=== PATIENT | male | born 1965 | race American Indian/Alaskan Native ===

== ENCOUNTER 2018-05-10 13:35 | Emergency (ER) | payer OTHER ==
[2018-05-10 13:51] VITALS: O2SAT 98
--- NOTE | 2018-05-10 14:04 | C.PDOC ---
History Of Present Illness 52 y/o male with a PMHx of hypertension presents to the ED complaining of occasional left chest pain for 1 week, which radiates to his back. Pain is rated a 4 out of 10 and described as "muscle stiffness" of the chest wall. Patient r eports history of endocarditis in 2015 and is s/p valve replacement surgery. He saw his PMD on 05/06, who referred patient to cardiology. His last stress test and echo were in 2017. Patient admits he forgot to take his daily dose of metropolol (50 mg) last night. Otherwise he denies any SOB, GILMORE, cough, fevers, chills, night sweats, nausea, vomiting, abdominal pain, or recent alcohol/drug use. No recent antibiotic use. No recent dental work. PMD- Dr. Emil oRdgers Time Seen by Provider: 05/10/18 14:03 Chief Complaint (Nursing): Chest Pain History Per: Patient History/Exam Limitations: no limitations Onset/Duration Of Symptoms: Intermittent Episodes Current Symptoms Are (Timing): Still Present Past Medical History Reviewed: Historical Data, Nursing Documentation, Vital Signs Vital Signs: Last Vital Signs Temp 98.1 F 05/10/18 13:47 Pulse 95 H 05/10/18 13:47 Resp 20 05/10/18 13:47 BP 143/104 H 05/10/18 13:47 Pulse Ox 98 05/10/18 13:47 - Medical History PMH: HTN Family History: States: No Known Family Hx - Social History Hx Alcohol Use: Yes Hx Substance Use: No - Immunization History Hx Tetanus Toxoid Vaccination: No Hx Influenza Vaccination: No Hx Pneumococcal Vaccination: No Review Of Systems Constitutional: Negative for: Fever, Chills, Sweats Eyes: Negative for: Vision Change Cardiovascular: Positive for: Chest Pain. Negative for: Palpitations Respiratory: Negative for: Cough, Shortness of Breath, SOB with Excertion Gastrointestinal: Negative for: Nausea, Vomiting, Abdominal Pain Musculoskeletal: Positive for: Back Pain Skin: Negative for: Rash Neurological: Negative for: Weakness, Numbness, Headache, Dizziness Physical Exam - Physical Exam Appears: Non-toxic, No Acute Distress Skin: Warm, Dry, No Diaphoretic Head: Normacephalic Eye(s): bilateral: Normal Inspection, PERRL, EOMI Oral Mucosa: Moist Neck: Trachea Midline, Supple, Other (No meningeal signs- negative kernig's and brudzinskis) Chest: Tenderness (reproducible pain to left chest wall) Cardiovascular: Rhythm Regular, No Friction Rub, No Murmur Respiratory: No Accessory Muscle Use, No Rales, No Rhonchi, No Wheezing Gastrointestinal/Abdominal: Soft, No Tenderness, No Distention Back: No CVA Tenderness, No Vertebral Tenderness Extremity: Bilateral: Atraumatic, Normal Color And Temperature Pulses: Left Dorsalis Pedis: Normal, Right Dorsalis Pedis: Normal Neurological/Psych: Oriented x3 ED Course And Treatment - Laboratory Results Result Diagrams: 05/10/18 14:34 05/10/18 14:34 O2 Sat by Pulse Oximetry: 98 (RA) Pulse Ox Interpretation: Normal Medical Decision Making Medical Decision Makin52 y/o M with a PMHx of HTN, endocarditis, s/p valve abx seed, p/w left-sided chest pain and back pain. Plan is to r/o dissection, r/o ACS. CP within 2d- and reproducible to palpation. Likely low heart score Heart score Story: 0 EK Age: 1 RF: 1 trop: pending Plan: --EKG --CT dissection study --Blood work --Blood cultures Chest CT: Name: SHIREEN JORGE Exam Date: May 10, 2018 3:54:22 PM EST Modality Type: CT\\ Description: CT - ABDOMEN AND CHEST Gender: M Laterality: Not applicable : 63 Referring Physician: PRIYANK LAMBERT EXAM: CT Chest with Intravenous Contrast. CT Abdomen and Pelvis with Intravenous Contrast CLINICAL HISTORY: Left side chest pain, r/o disection TECHNIQUE: Axial computed tomography images of the chest, abdomen and pelvis with intravenous contrast. CONTRAST: With; 100MLS VISI 320 COMPARISON: None provided. FINDINGS: CHEST: LUNGS: There is mild scarring of the lung bases as well as minimal pleural-parenchymal density at the right lower lung. PLEURAL SPACES: Mild pleural thickening at the right lung base. HEART: Heart within normal limits in size with cardiac valve replacement noted. LYMPH NODES: No lymphadenopathy is evident. ABDOMEN AND PELVIS: LIVER: There is an approximate 2.6 cm cyst within the superior aspect of the right lobe of the liver with smaller cyst present inferiorly. GALLBLADDER AND BILE DUCTS: The gallbladder appears within normal limits. No radioopaque gallstones are seen. No biliary ductal dilatation is evident. PANCREAS: Unremarkable. SPLEEN: Unremarkable. ADRENAL GLANDS: Unremarkable. KIDNEYS, URETERS, AND BLADDER: Unremarkable. No hydronephrosis or nephrolithiasis. No uterteral or bladder calculi. Prostate gland is markedly enlarged and lobulated in contour and density base of the bladder. STOMACH AND BOWEL: Unremarkable appearance of the stomach and bowel. No evidence of bowel obstruction. No evidence suggesting enteritis or colitis. Mild diverticular changes present sigmoid and descending colon. APPENDIX: No evidence of acute appendicitis on CT examination. PERITONEUM: No free fluid. No free air. LYMPH NODES: No lymphadenopathy is evident. VASCULATURE: The thoracic and abdominal aorta appear normal in course and caliber without evidence of an aneurysm or dissection. BONES: No acute osseous abnormality. IMPRESSION: Mild scarring at the lung bases with minimal pleural-parenchymal density at the right lower lung. The thoracic and abdominal aorta appears normal in course and caliber. There is no aneurysm or dissection. Cardiac valve replacement. Small cysts within the liver. Markedly enlarged prostate gland indenting the base of the bladder. Clinical correlation advised. Electronically signed on May 10, 2018 6:21:58 PM EST by: Keshawn Ramirez M.D., Certified by [employer], Diagnostic Radiology Labs reviewed, trop negative. Heart Score 3 Findings discussed w/ patient. Patient remains afebrile, AAOx3, resting comfortably, in no acute distress. Plan is to discharge patient home. Advised to follow up with cardiology and his PMD. He is agreeable to plan. Disposition Counseled Patient/Family Regarding: Studies Performed, Diagnosis, Need For Followup - Disposition Referrals: [facility] [Outside] [facility] [Outside] [facility] [Outside] Corwin Syed MD [Staff Provider] - Disposition: HOME/ ROUTINE Disposition Time: 18:40 Condition: GOOD Additional Instructions: Follow up with your primary care doctor or one we have provided as well as a revenue manager. If you continue to feel pain and dont feel better return to the ED anytime. SHIREEN JORGE, thank you for letting us take care of you today. Your provider was Joe Kumar and you were treated for LT SIDE CHEST PAIN. The emergency medical care you received today was directed at your acute symptoms. If you were p rescribed any medication, please fill it and take as directed. It may take several days for your symptoms to resolve. Return to the Emergency Department if your symptoms worsen, do not improve, or if you have any other problems. Please contact your doctor or call one of the physicians/clinics you have been referred to that are listed on the Patient Visit Information form that is included in your discharge packet. Bring any paperwork you were given at discharge with you along with any medications you are taking to your follow up visit. Our treatment cannot replace ongoing medical care by a primary care provider outside of the emergency department. Thank you for allowing the [facility] team to be part of your care today. If you had an X-Ray or CT scan: A Radiologist will review the ED reading if any change in treatment is needed we will contact you. If you had a blood, urine, or wound culture: It will take several days for the results, if any change in treatment is needed we will contact you. If you had an STI test: It will take 48 hours for the results. Please call after 1 week if you have not heard back. Prescriptions: Moxifloxacin [Avelox] 400 mg PO DAILY 10 Days #10 tab Instructions: Community-Acquired Pneumonia in Adults Forms: [facility] (Chinese) - Clinical Impression Clinical Impression: CAP (community acquired pneumonia) - Scribe Statement The provider has reviewed the documentation as recorded by the Jose De Jesus Marcos Provider Attestation: All medical record entries made by the Zacharyiblondon were at my direction and personally dictated by me. I have reviewed the chart and agree that the record accurately reflects my personal performance of the history, physical exam, medical decision making, and the department course for this patient. I have also personally directed, reviewed, and agree with the discharge instructions and disposition.
[2018-05-10 14:37] LABS: BASO % 0.4 % (0.0-2.0); EOS # 0.1 K/uL (0.0-0.7); EOS % 2.4 % (0.0-4.0); LYMPH # 1.6 K/uL (1.0-4.3); LYMPH % 26.9 % (20.0-40.0); MEAN CELL VOLUME 84.2 fL (80.0-94.0); MEAN CORPUSCULAR HEMOGLOBIN 28.8 pg (27.0-31.0); MEAN CORPUSCULAR HGB CONC 34.2 g/dL (33.0-37.0); MEAN PLATELET VOLUME 8.4 fL (7.2-11.7); MONO # 0.4 K/uL (0.0-0.8); MONO % 6.7 % (0.0-10.0); NEUT # 3.9 K/uL (1.8-7.0); NEUT % 63.6 % (50.0-75.0); NRBC % 0.1 % (0.0-2.0); RBC 5.56 Mil/uL (4.40-5.90); RED CELL DISTRIBUTION WIDTH 13.7 % (11.5-14.5); WHITE BLOOD COUNT 6.1 K/uL (4.8-10.8)
[2018-05-10 14:50] LABS: ALB/GLOB RATIO 1.4 (1.0-2.1); ALBUMIN 4.8 g/dL (3.5-5.0); ALT/SGPT 20 U/L (21-72); AST/SGOT 24 U/L (17-59); BLOOD UREA NITROGEN 17 mg/dL (9-20); CALCIUM 9.3 mg/dl (8.6-10.4); GFR NON-AFRICAN AMERICAN > 60
[2018-05-10] MEDS ORDERED: Iodixanol 320 MG/ML 100 ML BOTTLE IV ONE (15:20)
[2018-05-10 17:54] VITALS: BP 138/100; PULSE 84
[2018-05-10 19:46] VITALS: RESP 16; TEMP 99.2
--- NOTE | 2018-05-11 12:23 | CT ---
Date of service: 05/10/2018 CT Dissection protocol Indication: r/ out dissection Technique: Contiguous axial images were obtained through the chest/abdomen/pelvis without and with intravenous contrast enhancement utilizing dissection protocol technique. Sagittal and coronal reconstructions were generated and reviewed. This CT exam was performed using 1 or more of the following dose reduction techniques: Automated exposure control, adjustment of the MAA and/or kV according to patient size, and/or use of iterative reconstruction technique. Radiation dose (DLP): 2577.51 MGy-cm. Contrast: 100 mL Visipaque 320 IV Findings: Visualized portions of the inferior thyroid gland appear unremarkable. The mediastinal and hilar vascular structures appear within normal limits. The heart appears within normal limits of size. Cardiac valve prosthesis. No evidence of thoracic aorta dissection or aneurysmal dilatation. Mild right basilar atelectasis/infiltrate. Mild pleural thickening at the right lung base. No pleural effusion. No pneumothorax. There is normal course and contour of the abdominal aorta and common iliac arteries. The celiac artery, superior mesenteric artery and inferior mesenteric artery origins appear patent. Bilateral renal arteries appear patent. At least 3 probable hepatic cysts. The pancreas, spleen, adrenal glands, and gallbladder appear unremarkable. Lobulated renal contours. Question presence of focal renal scarring versus 8 mm exophytic left angiomyolipoma (series 6, image 124). The kidneys enhance symmetrically without evidence of hydronephrosis or obstructing renal calculi. No enlarged abdominal lymphadenopathy is identified. The stomach is nondistended. Diverticulosis without CT evidence of acute diverticulitis. Visualized bowel loops appear within normal limits of caliber without evidence of obstruction. The appendix appears normal. No inflammatory changes are seen in the right lower quadrant to suggest acute appendicitis. No definite free air. Mildly thick-walled under distended urinary bladder. Enlarged prostate gland measures approximately 4.6 x 5.7 cm. No significant pelvic free fluid is identified. Fat containing right greater than left inguinal hernias. Degenerative changes of the spine. Impression: No evidence of aortic aneurysm or dissection. Mild pleural thickening at the right lung base. Mild right basilar atelectasis/infiltrate. Question presence of focal renal scarring versus 8 mm exophytic left angiomyolipoma. Diverticulosis without CT evidence of acute diverticulitis. Enlarged prostate gland. Recommend correlation with PSA. Mildly thick-walled under distended urinary bladder. Fat containing right greater than left inguinal hernias. Preliminary impression was provided by [facility]. Study marked for PA review.
--- NOTE | 2018-05-13 13:05 | CARD ---
APPROVED REPORT Date of service: 05/10/2018 EKG Measurement Heart [id number] IN [id number] [id number] <Conclusion> Normal sinus rhythm Nonspecific T wave abnormality Abnormal ECG
== END 2018-05-10 19:44 | disposition home or self-care (01) ==
LOC: C.ER 13:35
DX: J18.9 Pneumonia, unspecified organism (principal); I10 Essential (primary) hypertension
CPT/HCPCS: 71275; 74175; 80053; 83735; 84484; 85025; 87040; 93005; 99285; Q9967